=== PATIENT | male | born 2005 | race Two or more races ===

== ENCOUNTER 2024-06-30 10:11 | Emergency (ER) | payer OTHER ==
[~2024-06-30] VITALS: Ht 160 cm; Wt 104.3 kg
[2024-06-30] MEDS ORDERED: MUPIROCIN15 GM TOP (11:20)
[2024-06-30] MEDS ORDERED: CLEOCIN HCL300 MG PO (11:20)
== END 2024-06-30 12:06 | disposition home or self-care (01) ==
LOC: ER 10:12 → EMR PED 10:12
DX: L02.213 Cutaneous abscess of chest wall (principal)

== ENCOUNTER → 2024-08-11 04:00 | Outpatient (CLI) | payer OTHER ==
[~2024-08-11 04:00] MED LIST: CLEOCIN HCL300 MG PO; MUPIROCIN15 GM TOP
== END | disposition home or self-care (01) ==
LOC: PPH VACUNA 04:00
PROVIDERS: ATTEND Emergency Medicine Pediatric Emergency Medicine
DX: Z23 Encounter for immunization (principal)